=== PATIENT | female | born 1995 | race American Indian/Alaskan Native ===

== ENCOUNTER 2017-08-28 17:39 | Emergency (ER) | payer OTHER, MEDICAID ==
[2017-08-28 17:58] VITALS: BP 109/66; PULSE 63; RESP 18; TEMP 98.1; O2SAT 100
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
[2017-08-28] MEDS ORDERED: Bacitracin 500 Units/gm Oint Foilpak UD TOP ONE (19:35)
[2017-08-28] MEDS ORDERED: Bacitracin 500 Units/gm Oint Foilpak UD ONE (19:37)
--- NOTE | 2017-08-29 08:24 | RAD ---
Left tibia and fibula four views History: Injury. Comparison: None available Findings: No evidence for acute displaced fracture or dislocation. Impression: Negative acute. If pain persists, consider MRI.
== END 2017-08-28 19:40 | disposition home or self-care (01) ==
LOC: C.ER 17:39
DX: S80.12XA Contusion of left lower leg, initial encounter (principal); V43.52XA Car driver injured in collision with other type car in traffic accident, initial encounter; Y92.414 Local residential or business street as the place of occurrence of the external cause